=== PATIENT | female | born 1975 | race Caucasian/White ===

== ENCOUNTER → 2017-01-16 | Outpatient (CLI) | payer BC ==
[~2017-01-16] MED LIST: ALL180 PO; ASPCH81X PO; ASPI81TA28 PO; BIOTCAP2 PO; CALC500C70 PO; CYAN100020 PO; FEXO1TAB49 PO; KELP100T PO; LEVO100T7 PO; LEVO112T4 PO; MONT1TAB3 PO; MULT-506 PO; PANT40TA PO; SNG10 PO
== END | disposition home or self-care (01) ==
LOC: C.RDSM 07:55
PROVIDERS: ATTEND Physical Medicine & Rehabilitation Sports Medicine
DX: M25.511 Pain in right shoulder (principal); M25.512 Pain in left shoulder

== ENCOUNTER → 2017-07-17 | Outpatient (CLI) | payer BC ==
[~2017-07-17] MED LIST changes: -ASPI81TA28 PO; -CYAN100020 PO; -FEXO1TAB49 PO; -LEVO112T4 PO; -MONT1TAB3 PO
--- NOTE | 2017-07-17 18:08 | DIAGNOSTIC IMAGING REPORT ---
MRI OF THE LEFT SHOULDER WITHOUT CONTRAST CLINICAL HISTORY: Recurrent left shoulder pain. COMPARISON STUDY: Left shoulder radiographs January 16, 2017. FINDINGS: Alignment of the left shoulder is anatomic. There is joint space narrowing with capsular hypertrophy and edema within the distal left clavicle and adjacent acromium. There is no significant arthrosis of the glenohumeral joint. This exam is compromised by diminished fxkqoc-cy-dutoa ratio. The proximal long head of the biceps tendon is not well evaluated on this exam but likely intact. No labral tear is identified on this nonarthrogram exam. There is no full-thickness rotator cuff tear. There is mild intermediate signal within distal supraspinatus and infraspinatus suggestive of tendinopathy. IMPRESSION: 1. Moderate to severe osteoarthritis of the acromioclavicular joint. Distal clavicular osteolysis could appear similar although is considered less likely. 2. No full-thickness rotator cuff tear. Mild tendinopathy of distal supraspinatus and infraspinatus. 3. Study compromised by diminished [id number]-[id number] ratio. Suboptimal evaluation of the proximal long head of the biceps tendon. Electronically signed by: Dillon Virgen M.D. 07/17/2017 6:07 PM Dictated Date/Time: 07/17/2017 4:05 PM
== END | disposition home or self-care (01) ==
LOC: C.MRIBC 14:46
PROVIDERS: ATTEND Physical Medicine & Rehabilitation Sports Medicine
DX: M25.512 Pain in left shoulder (principal); M19.012 Primary osteoarthritis, left shoulder

== ENCOUNTER → 2017-08-16 | Day surgery (SDC) | payer BC ==
[2017-08-07 09:50] VITALS: Ht 167.6 cm; Wt 113.6 kg
[~2017-08-16] VITALS: Ht 167.6 cm; Wt 113.6 kg
[~2017-08-16] MED LIST changes: -ALL180 PO; -ASPCH81X PO; +ASPI81TA28 PO; +ATROPINE SULFATE 0.1 MG/ML 5ML SYR IV PRN; +CEFAZOLIN 2000MG IV PUSH 10 ML IV SCH; +CYAN100020 PO; +DEXAMETHASONE SOD INJ 4 MG/ML VIAL ONE; +EpHEDrine SULFATE INJ 50 MG/ML AMP IV PRN; +EpINEphrine INJ 1MG/ML AMP 1 MG/ML AMP ONE; +FENTANYL CITRATE INJ 50 MCG/1 ML 2 ML VIAL IV PRN; +FENTANYL CITRATE INJ 50 MCG/1 ML 2 ML VIAL ONE; +FEXO1TAB49 PO; +GLYCOPYRROLATE INJ 0.2 MG/ML VIAL ONE; +LACTATED RINGER'S 1000ML 1,000 ML IV SCH; -LEVO100T7 PO; +LEVO112T4 PO; +LIDOCAINE HCL 2% 2 ML VIAL (20MG/ML) ONE; +LIDOCAINE/EPINEPHRINE 1% INJ 50 ML VIAL ONE; +MIDAZOLAM HCL 1 MG/ML 2ML VIAL ONE; +MONT1TAB3 PO; +MoRPHine SULFATE 2 MG/ML CARP IV PRN; +MoRPHine SULFATE 4 MG/ML 1 ML CARP\\VIAL IV PRN; +NEOSTIGMINE METHYLSULFATE 5 MG/5 ML SYR ONE; +ONDANSETRON INJ 2 MG/ML 2 ML VIAL IV PRN; +ONDANSETRON INJ 2 MG/ML 2 ML VIAL ONE; +OXYCODONE/ACETAMINOPHEN 5-325 TAB PO PRN; +PROPOFOL IV EMULSION 10 MG/ML 20 ML VIAL IV ONE; +ROCURONIUM BROMIDE 10 MG/ML 5 ML VIAL IV ONE; +ROPIVACAINE 0.5% 5 MG/ML 30 ML VIAL ONE; -SNG10 PO; +SODIUM CHLORIDE 0.9% 1000ML 1,000 ML IV SCH; +SUCCINYLCHOLINE CHLORIDE 20 MG/ML 10 ML VIAL IV ONE; +TRAM-10 PO
--- NOTE | 2017-08-16 07:53 | History & Physical Bridge Note ---
H&P Re-Evaluation Bridge Note: I have examined the patient, reviewed the History & Physical and in the interval since the performance of the History & Physical I have noted the following changes of clinical significance: No changes noted
--- NOTE | 2017-08-16 12:53 | [facility] Post Operative Brief Note ---
Immediate Operative Summary Operative Date Aug 16, 2017. Pre-Operative Diagnosis Left Shoulder Impingement, Acromioclavicular Arthritis Post-Operative Diagnosis Same Procedure(s) Performed Left Shoulder Arthroscopic Subacromial Decompression, Distal Clavicle Excision Surgeon Dr. Rivera Card Fixer Surgeon(s) Sveta Sesay, Fellow; Abeba Caro PA-C Estimated Blood Loss Minimal Findings As above Specimens None Drains none Anesthesia Gen. Complication(s) None Disposition Recovery Room / PACU
--- NOTE | 2017-08-16 13:10 | Discharge Instructions-SurgCtr ---
Discharge Instructions Date of Service Aug 16, 2017. Visit Reason for Visit: Left Shoulder Impingement, Acromioclavicular Arthr Discharge Discharge Diagnosis / Problem: left shoulder impingement, acromioclavicular joint arthritis Discharge Goals Goal(s): Decrease discomfort, Improve function, Increase independence Medications Stopped Medications Name(s): Aspirin last taken 08/14 Restart Stopped Medication(s): Okay to resume aspirin Activity Recommendations Activity Limitations: per Instructions/Follow-up section Weightbearing Status: Left non-weightbearing (left shoulder) Anesthesia . Post Anesthesia Instructions: If you have had General Anesthesia or IV Sedation: * Do not drive today. * Resume driving when surgeon permits. * Do not make important decisions or sign legal documents today. * Call surgeon for: 1. Temperature elevations greater than 101 degrees F. 2. Uncontrollable pain. 3. Excessive bleeding. 4. Persistent nausea and vomiting. 5. Medication intolerance (nausea, vomiting or rash). * For nausea and vomiting use only clear liquids such as: tea, soda, bouillon until nausea subsides, then gradually increase diet as tolerated. * If you have any concerns or questions, call your surgeon's office. If physician is unavailable and it is an emergency, call 911 or go to the nearest emergency room. . Instructions / Follow-Up Instructions / Follow-Up The following are instructions to follow after "Shoulder Surgery" including, Acromioplasty, Rotator Cuff Repair and Instability Surgery ACTIVITY RECOMMENDATIONS: * Minimize activity after surgery. * No excessive walking, jogging, sports or laboring. * Return to activity is individualized depending on the patient and type of surgery. * Driving is not permitted until at least your first post operative visit. Please ask your doctor when it is safe to resume driving. * Expect increased discomfort with increased activity. Continue to ice the shoulder as needed. SCHOOL/WORK RECOMMENDATIONS: * You may return to sedentary work or school when you are feeling more comfortable. This is usually 3-7 days after surgery. MEDICATIONS: * You will have a prescription for pain medication and an anti-inflammatory medication after surgery. * Use the pain medication for severe pain and the anti-inflammatory for less severe pain. Once the pain medication has run out, try to use the anti-inflammatory medication. If this is not effective, contact the office for assistance. * The pain medication may cause nausea, constipation and drowsiness. You should see how they affect you before driving or similar activity. * The anti-inflammatory medication may cause stomach upset and bleeding. If this occurs let your doctor know immediately . * Take a stool softener like Colace or a laxative like Senokot to prevent constipation. DIET: * Resume previous diet. SPECIAL CARE: ICE: You have the option of an ice cooler, gel packs or ice bags. * If you have an ice cooler, refer to the instructions for that device. The ice cooler may be used continuously. * If you do not have an ice cooler, you will need to use ice bags or gel packs. Do not apply ice directly to the skin. Use a thin dressing or alvina shirt between the skin and ice bag. Apply ice for 20-30 minutes and repeat every 2-4 hours. This is especially important for the first 7-10 days after surgery. Once the pain improves, use ice as needed. ELEVATION: * You may be more comfortable sleeping in an upright position. Use the sling to elevate your arm. DRESSING: * Your dressing will be changed at your first therapy appointment approximately 4-5 days after surgery. Band-aids, tape strips or gauze may be applied. You may then change your dressing daily. * Reapply dressing followed by the EBIce cooling pad (if chosen) and then the sling. * Always wash your hands prior to touching the incision area. * Once the stitches are removed, you may leave the wound open to air or cover with gauze. * Expect some bloody drainage for the first few days after surgery. * Leave the tape strips, if present, in place for 5-7 days. * Band-aids and gauze may be changed daily. * There may be a gauze pad in your armpit area. This can be changed daily or replaced by a dry washcloth. SLING/BRACE: * You will need to use a sling or brace after surgery. The length of time the sling is used is dependent upon the type of surgery performed. * Arthroscopic Acromioplasty requires use of the sling for 2-4 weeks for comfort. * Labral procedures and Rotator Cuff Repairs require use of the sling for a longer period of time. Please check with your doctor prior to discontinuing the sling. BATHING: * You may shower or sponge-bathe immediately after surgery. The post operative shoulder dressing is mostly water-tight. You may shower right over this dressing, but be reasonably careful not to get the gauze or incision wet. * Once the dressing has been changed on the fourth or fifth day after surgery, you may shower and get the incision wet. * Wash with regular soap and water. * Do not bathe (submerge the incision), soak, swim or use a hot tub until the incision is completely healed over with normal skin and the doctor has given the OK to proceed. * There is no need to apply any ointments, powders or salves to your incision. * Do not apply alcohol or hydrogen peroxide directly to the incision. * Diluted peroxide (50:50 mixture with sterile saline) may be used to clean dried blood from around the incision area. THERAPY: * You will begin therapy four or five days after surgery. * Organized therapy with the therapist is important for the first 2-4 months after surgery depending on the type of procedure. During that time you will attend therapy 1-3 times per week. * You will also need to do daily exercises for range of motion and strength as instructed. * Patients who have a Capsular Shift Procedure will need to abide by temporary range of motion limitations. * Patients having Rotator Cuff Surgery are not allowed to actively lift their arms until 4-6 weeks after surgery. * Please check with your doctor regarding appropriate motion restrictions. FOLLOW UP VISIT: * If not already scheduled, please call the office at to schedule a follow-up appointment for 10 days after surgery and monthly thereafter. * You have physical therapy appointment on 08/20/2017 at 8 AM * You have a follow-up with Dr. Rivera scheduled on 08/29/2017 at 4:00 PM Diet Recommendations Home Diet: no limitations, resume previous diet Procedures Procedures Performed: Left Shoulder Arthroscopic Subacromial Decompression, Distal Clavicle Excision Pending Studies Studies pending at discharge: no Medical Emergencies . Who to Call and When: Medical Emergencies: If at any time you feel your situation is an emergency, please call 911 immediately. . Non-Emergent Contact Non-Emergency issues call your: Surgeon Call Non-Emergent contact if: temperature is above 101, your pain is not controlled, your pain is worsening, your pain is unusual for you, your pain is concerning you, wound has increased drainage, wound has increased redness, wound has increased pain, you have any medication questions . . "Provider Documentation" section prepared by Milli Caro. .
--- NOTE | 2017-08-16 13:14 | [facility] Operative Report ---
Operative Report Operative Date Aug 16, 2017. Pre-Operative Diagnosis Left Shoulder Impingement, Acromioclavicular Arthritis Post-Operative Diagnosis Same Procedure(s) Performed Left Shoulder Arthroscopic Subacromial Decompression, Distal Clavicle Excision Surgeon Dr. Rivera Etched Circuit Processor Surgeon(s) Sveta Sesay, Fellow; Milli Caro PA-C Estimated Blood Loss Minimal Findings Acromioclavicular joint arthritis, subacromial bursitis Specimens None Drains none Anesthesia Gen. Complication(s) None Disposition Recovery Room / PACU Indications Patient is a 42-year-old female with persistent left shoulder pain who is failed conservative treatment which is included physical therapy and corticosteroid injections. She continues to have pain with reaching over and overhead activities. She had a previous right shoulder arthroscopy subacromial decompression and distal clavicle excision which she has done well with on the right shoulder. She would like to proceed with that on her left shoulder. Due to failure of conservative treatment surgical intervention was recommended. X- rays show type I acromion. MRI showed no evidence of rotator cuff tear but evidence of bursitis and acromioclavicular joint arthritis of her left shoulder. Risks and complications discussed. Informed consent was obtained. Surgery was scheduled. Description of Procedure Patient was taken to the operating room and placed under general anesthesia. She was given 2 g of IV Ancef for surgical prophylaxis. Timeout was performed preoperatively. She was prepped and draped in routine sterile fashion. I was present during the entire case, please see Dr. Rivera's operative report for further detail. Patient was awakened and transferred to the recovery room in stable condition. I attest to the content of the Intraoperative Record and any orders documented therein. Any exceptions are noted below.
[2017-08-16 13:50] VITALS: TEMP 36.5
--- NOTE | 2017-08-16 14:15 | OPERATIVE REPORT ---
DATE OF OPERATION: 08/16/2017 PREOPERATIVE DIAGNOSIS: Left shoulder AC joint arthritis and subacromial impingement syndrome. POSTOPERATIVE DIAGNOSIS: Same. PROCEDURE: Left shoulder arthroscopy with arthroscopic distal clavicle excision and subacromial decompression. SURGEON: Dr. Rivera. FRONT END LOADER OPERATOR: Low Sesay, fellow. SECOND FRONT END LOADER OPERATOR: Milli Caro PA-C. ANESTHESIA: General. INDICATIONS OF PROCEDURE: The patient is a 42-year-old female with left shoulder pain refractory to nonsurgical methods of management including therapy and injections. She is status post identical operation on contralateral side with good success. She has findings consistent with impingement syndrome and AC arthritis confirmed with radiographs and MRI. OPERATION AND FINDINGS: PROCEDURE IN DETAIL: Informed consent was obtained. The patient was identified as Yadi Donis. She identified the operative site as the left shoulder. I marked it with my initials. A preop surgical time out was performed. A preop dose of IV antibiotics was given. She was taken to the operating room and positioned beach chair while awake. She was returned to the supine position and the anesthetic was administered. She was positioned beach chair with her neck in neutral alignment. The torso was secured to the table. Bony prominences were inspected and padded. The Jacquelin body positioner and Trimano arm marshall were utilized. The examination under anesthesia revealed grade 1 global laxity of the left shoulder and full range of motion equal to the opposite side. Left upper extremity was prepped and draped in the usual sterile fashion. DVT prophylaxis intraoperatively with foot pumps, postoperatively with early mobility. 1% lidocaine with epinephrine was injected into the fat pad and portal sites preoperatively and subacromial space. A posterior soft spot viewing portal was established followed by an anterior mid glenoid working portal. The shoulder joint itself was normal. Articular surfaces, labrum, biceps tendon, rotator cuff capsule all were normal. The scope was placed anterior to visualize the posterior structures. There were no loose bodies. The superior capsule was debrided to reveal the rotator cuff beneath it, which was normal in appearance. She had a fairly prominent cable crescent complex. The bare area was normal. Some redundancy of the posterior labrum was debrided. No SLAP lesion. The scope was placed in the subacromial space and accessory lateral portal was created using the outside-in technique. Significant subacromial bursitis was noted which was thoroughly debrided revealing an underlying normal appearing rotator cuff. The anterior several centimeters of the acromion were denuded of soft tissue and the borders of the acromion were defined. The coracoacromial ligament was released. A modified cutting block acromioplasty was performed removing about 3-4 mm of anterior acromial bone smoothing it from back to front and [id number]. The acromial facet of the AC joint was debrided. The AC joint was exposed using the cold cut and shaver. Two passes were made front to back, taking 7-10 mm of bone, taking care to remove superior and posterior bone. Bleeding controlled with cold cut. I visualized from the anterior portal and found that there was an even resection, no posterior or superior remaining bone. The shaver was run through the shoulder to warehouse picker loose debris and the portals were closed with 4-0 nylon. The prepping agent was removed from the shoulder as she had reported some irritation with chlorhexidine wipes prior to surgery. Soft sterile dressing was applied with an ABD in the armpit and simple sling. She was awakened from anesthesia without difficulty and taken to recovery room in stable condition. There were no specimens or complications. Counts were correct at the end of the case. Blood loss was minimal. At the conclusion of the operation, I spoke to the patient's family and informed them of my findings. Postoperative instructions were given. She can be rehabilitated according to the subacromial decompression and arthroscopic distal clavicle excision protocol. She will be able to do early active movement of her shoulder. I attest to the content of the Intraoperative Record and any orders documented therein. Any exceptions are noted below. DAYO
--- NOTE | 2017-08-16 14:19 | Anesthesia Progress Nt - [facility] ---
Anesthesia Post Op Note Date & Time Aug 16, 2017 at 14:19 Vital Signs Pain Intensity: 0 Vital Signs Past 12 Hours Date Time Temp Pulse Resp B/P (MAP) Pulse Ox O2 Delivery O2 Flow Rate FiO2 08/16/17 13:50 36.5 79 16 148/100 (116) 97 Room Air 08/16/17 13:28 36.2 95 Room Air 08/16/17 13:28 80 20 08/16/17 13:28 80 20 95 08/16/17 13:27 84 18 08/16/17 13:27 84 18 95 08/16/17 13:26 148/83 08/16/17 13:22 90 25 96 08/16/17 13:22 90 25 08/16/17 13:21 128/94 08/16/17 13:20 91 99 08/16/17 13:20 91 08/16/17 13:16 135/85 08/16/17 13:15 91 17 08/16/17 13:15 90 17 100 08/16/17 13:14 83 17 100 08/16/17 13:14 84 17 08/16/17 13:11 134/80 08/16/17 13:09 84 17 08/16/17 13:09 85 17 100 08/16/17 13:06 131/77 08/16/17 13:05 132/76 08/16/17 13:04 36.3 82 16 132/76 100 Mask 6 08/16/17 10:29 95 23 100 08/16/17 10:29 95 08/16/17 10:28 90 23 100 08/16/17 10:28 91 08/16/17 10:27 84 08/16/17 10:27 84 14 100 08/16/17 10:27 84 14 100 08/16/17 10:27 84 08/16/17 10:26 135/101 08/16/17 10:26 135/101 08/16/17 10:22 85 08/16/17 10:22 85 17 100 08/16/17 10:22 85 08/16/17 10:22 85 17 100 08/16/17 10:21 143/89 08/16/17 10:21 143/89 08/16/17 10:17 84 08/16/17 10:17 85 24 100 08/16/17 10:17 84 08/16/17 10:17 85 24 100 08/16/17 10:16 138/96 08/16/17 10:16 138/96 08/16/17 10:12 81 21 100 08/16/17 10:12 81 08/16/17 10:12 81 08/16/17 10:12 81 21 100 08/16/17 10:11 134/99 08/16/17 10:11 134/99 08/16/17 10:07 80 08/16/17 10:07 80 08/16/17 10:07 80 16 100 08/16/17 10:07 80 16 100 08/16/17 10:06 142/85 08/16/17 10:06 142/85 08/16/17 10:02 80 21 100 08/16/17 10:02 80 21 100 08/16/17 10:02 78 08/16/17 10:02 78 08/16/17 10:01 137/91 08/16/17 10:01 137/91 08/16/17 09:57 81 22 100 08/16/17 09:57 81 22 100 08/16/17 09:57 81 08/16/17 09:57 81 08/16/17 09:56 152/96 08/16/17 09:56 152/96 08/16/17 09:52 74 08/16/17 09:52 73 22 100 08/16/17 09:52 73 22 100 08/16/17 09:52 74 08/16/17 09:51 170/92 08/16/17 09:51 170/92 08/16/17 09:49 179/104 08/16/17 09:49 179/104 08/16/17 09:47 91 08/16/17 09:47 93 24 198/109 100 08/16/17 09:47 93 24 198/109 100 08/16/17 09:47 91 08/16/17 09:45 193/137 08/16/17 09:45 193/137 08/16/17 08:04 36.8 88 18 160/104 (122) 100 Room Air Notes Mental Status: alert / awake / arousable, participated in evaluation Pt Amnestic to Procedure: Yes Nausea / Vomiting: adequately controlled Pain: adequately controlled Airway Patency, RR, SpO2: stable & adequate BP & HR: stable & adequate Hydration State: stable & adequate Anesthetic Complications: no major complications apparent
[2017-08-16 14:20] VITALS: BP 133/88; PULSE 85; O2SAT 97
== END | disposition home or self-care (01) ==
LOC: X.SURG 07:45
PROVIDERS: ATTEND Physical Medicine & Rehabilitation Sports Medicine
DX: M25.812 Other specified joint disorders, left shoulder (principal); M19.012 Primary osteoarthritis, left shoulder; J45.909 Unspecified asthma, uncomplicated; E03.9 Hypothyroidism, unspecified; J30.2 Other seasonal allergic rhinitis; K21.9 Gastro-esophageal reflux disease without esophagitis; K58.9 Irritable bowel syndrome, unspecified; E66.9 Obesity, unspecified; Z79.82 Long term (current) use of aspirin; Z79.899 Other long term (current) drug therapy; Z68.41 Body mass index [BMI] 40.0-44.9, adult

== ENCOUNTER → 2017-08-29 | Outpatient (CLI) | payer BC ==
[~2017-08-29] MED LIST changes: -ATROPINE SULFATE 0.1 MG/ML 5ML SYR IV PRN; -CEFAZOLIN 2000MG IV PUSH 10 ML IV SCH; -DEXAMETHASONE SOD INJ 4 MG/ML VIAL ONE; -EpHEDrine SULFATE INJ 50 MG/ML AMP IV PRN; -EpINEphrine INJ 1MG/ML AMP 1 MG/ML AMP ONE; -FENTANYL CITRATE INJ 50 MCG/1 ML 2 ML VIAL IV PRN; -FENTANYL CITRATE INJ 50 MCG/1 ML 2 ML VIAL ONE; -GLYCOPYRROLATE INJ 0.2 MG/ML VIAL ONE; -LACTATED RINGER'S 1000ML 1,000 ML IV SCH; -LIDOCAINE HCL 2% 2 ML VIAL (20MG/ML) ONE; -LIDOCAINE/EPINEPHRINE 1% INJ 50 ML VIAL ONE; -MIDAZOLAM HCL 1 MG/ML 2ML VIAL ONE; -MoRPHine SULFATE 2 MG/ML CARP IV PRN; -MoRPHine SULFATE 4 MG/ML 1 ML CARP\\VIAL IV PRN; -NEOSTIGMINE METHYLSULFATE 5 MG/5 ML SYR ONE; -ONDANSETRON INJ 2 MG/ML 2 ML VIAL IV PRN; -ONDANSETRON INJ 2 MG/ML 2 ML VIAL ONE; -OXYCODONE/ACETAMINOPHEN 5-325 TAB PO PRN; -PROPOFOL IV EMULSION 10 MG/ML 20 ML VIAL IV ONE; -ROCURONIUM BROMIDE 10 MG/ML 5 ML VIAL IV ONE; -ROPIVACAINE 0.5% 5 MG/ML 30 ML VIAL ONE; -SODIUM CHLORIDE 0.9% 1000ML 1,000 ML IV SCH; -SUCCINYLCHOLINE CHLORIDE 20 MG/ML 10 ML VIAL IV ONE
== END | disposition home or self-care (01) ==
LOC: C.RDSM 16:40
PROVIDERS: ATTEND Physical Medicine & Rehabilitation Sports Medicine
DX: M19.019 Primary osteoarthritis, unspecified shoulder (principal); M75.82 Other shoulder lesions, left shoulder